=== PATIENT | female | born 1975 | race Caucasian/White ===

== ENCOUNTER → 2024-01-03 | Outpatient (CLI) | payer OTHER ==
[2024-01-03 11:00] LABS: Basophils # (A) 0.04 X 10*3/uL (0.00-0.10); Basophils % (A) 0.5 %; Eosinophils # (A) 0.26 X 10*3/uL (0.04-0.35); Eosinophils % (A) 3.5 %; HCT 38.2 % (37.2-46.3); HGB 11.3 g/dL (12.0-15.0); Lymphocytes % (A) 18.7 %; MCH 23.2 pg (27.0-32.0); MCHC 29.6 g/dL (32.0-37.0); MCV 78.3 FL (80.0-97.0); Monocytes # (A) 0.45 X 10*3/uL (0.20-1.00); NRBC Per 100 WBC 0 X 10*3/uL (0.00-0.01); Neutrophils # (A) 5.33 X 10*3/uL (1.80-7.70); Platelet Count 418 X 10*3/uL (140-440); RBC 4.88 X 10*6/uL (4.10-5.20); RDW 19.9 % (11.5-14.5)
[2024-01-03 11:22] LABS: ALT 21 U/L (8-44); AST 21 U/L (13-35); Albumin 4.6 g/dL (3.8-4.9); Albumin/Globulin Ratio 1.59 Ratio (1.60-3.17); Alkaline Phosphatase 129 U/L (41-126); BUN/Creat Ratio 21.86 Ratio (12.00-20.00); Blood Urea Nitrogen 15.3 mg/dL (9.0-27.0); Calcium 9.7 mg/dL (8.7-10.3); Carbon Dioxide 23.4 mmol/L (21.6-31.8); Chloride 105 mmol/L (96-109); Chol/HDL Ratio 2.87 Ratio; Globulin 2.9 g/dL (1.6-3.3); Glucose 107 mg/dL (70-110); LDL Cholesterol,Calculated 97.3 mg/dL (0.0-131.0); Potassium 4.8 mmol/L (3.5-5.5); Sodium 140 mmol/L (135-145); Total Bilirubin 0.3 mg/dL (0.3-1.2); Total Protein 7.5 g/dL (6.2-8.2); VLDL Calculation 18.02 mg/dL (5.00-40.00)
== END | disposition home or self-care (01) ==
LOC: LABWHC1 08:10
PROVIDERS: ATTEND Family Medicine
DX: R53.82 Chronic fatigue, unspecified (principal); D62 Acute posthemorrhagic anemia
CPT/HCPCS: 36415; 80053; 80061; 84443; 85025

== ENCOUNTER → 2024-01-11 | Outpatient (CLI) | payer OTHER ==
[2024-01-11 15:20] LABS: % Iron Saturation 3.53 (12.00-45.00); Ferritin 10.2 ng/mL (10.0-291.0)
== END | disposition home or self-care (01) ==
LOC: LABWHC1 09:40
PROVIDERS: ATTEND Internal Medicine
DX: R71.8 Other abnormality of red blood cells (principal); R74.8 Abnormal levels of other serum enzymes
CPT/HCPCS: 36415; 82306; 82607; 82728; 82746; 83540; 83550; 84466

== ENCOUNTER → 2024-06-08 | Outpatient (CLI) | payer OTHER ==
[2024-06-08 18:49] LABS: Basophils # (A) 0.06 X 10*3/uL (0.00-0.10); Basophils % (A) 0.6 %; Eosinophils # (A) 0.18 X 10*3/uL (0.04-0.35); Eosinophils % (A) 1.9 %; HCT 48.6 % (37.2-46.3); Lymphocytes # (A) 1.75 X 10*3/uL (0.90-5.00); Lymphocytes % (A) 18.8 %; MCH 24.3 pg (27.0-32.0); MCHC 30.9 g/dL (32.0-37.0); MCV 78.6 FL (80.0-97.0); Mean Platelet Volume 10.3 FL (9.5-12.2); Monocytes # (A) 0.49 X 10*3/uL (0.20-1.00); Monocytes % (A) 5.3 %; NRBC Per 100 WBC 0 X 10*3/uL (0.00-0.01); Neutrophils # (A) 6.79 X 10*3/uL (1.80-7.70); Neutrophils % (A) 72.9 %; Platelet Count 378 X 10*3/uL (140-440); RBC 6.18 X 10*6/uL (4.10-5.20); RDW 20.3 % (11.5-14.5); WBC 9.32 X 10*3/uL (4.50-10.00)
[2024-06-08 19:02] LABS: % Iron Saturation 8.68 (12.00-45.00); ALT 28 U/L (8-44); AST 27 U/L (13-35); Albumin 4.5 g/dL (3.8-4.9); Albumin/Globulin Ratio 1.41 Ratio (1.60-3.17); Alkaline Phosphatase 129 U/L (41-126); BUN/Creat Ratio 20.57 Ratio (12.00-20.00); Blood Urea Nitrogen 14.4 mg/dL (9.0-27.0); Calcium 9.6 mg/dL (8.7-10.3); Carbon Dioxide 24.1 mmol/L (21.6-31.8); Chloride 103 mmol/L (96-109); Chol/HDL Ratio 3.21 Ratio; Ferritin 32.3 ng/mL (10.0-291.0); Globulin 3.2 g/dL (1.6-3.3); Glucose 102 mg/dL (70-110); Iron 38 UG/DL (50-170); LDL Cholesterol,Calculated 102.4 mg/dL (0.0-131.0); Magnesium 2.3 mg/dL (1.5-2.4); Potassium 4.6 mmol/L (3.5-5.5); Sodium 139 mmol/L (135-145); Total Bilirubin 0.3 mg/dL (0.3-1.2); Total Iron Binding Capacity 438 UG/DL (228-460); Total Protein 7.7 g/dL (6.2-8.2)
== END | disposition home or self-care (01) ==
LOC: LABWHC1 11:48
PROVIDERS: ATTEND Internal Medicine
DX: D62 Acute posthemorrhagic anemia (principal); I10 Essential (primary) hypertension; E55.9 Vitamin D deficiency, unspecified
CPT/HCPCS: 36415; 80053; 80061; 82088; 82306; 82533; 82607; 82728; 82746; 83540; 83550; 83735; 84244; 84443; 85025

== ENCOUNTER → 2024-06-19 | Outpatient (CLI) | payer OTHER ==
--- NOTE | 2024-06-19 09:21 | US ---
EXAMINATION TYPE: US liver DATE OF EXAM: 06/19/2024 COMPARISON: NONE CLINICAL INDICATION: Female, 49 years old with history of R74.8 ABNORMAL LEVELS OF OTHER SERUM ENZYME S; Elevated alkaline phosphatase TECHNIQUE: Grayscale and color Doppler imaging of the right upper quadrant was performed. FINDINGS: EXAM MEASUREMENTS: Liver Length: 21.2 cm Gallbladder Wall: Surgically absent CBD: 0.3 cm Right Kidney: 11.1 x 4.0 x 4.0 cm MACHINE TOOL MECHANIC NOTES: *Limitations due to overlying bowel gas Pancreas: limited evaluation, appears slightly heterogenous Liver: enlarged, attenuating Gallbladder: Surgically absent Evidence for sonographic Aldana's sign: no CBD: appears wnl Right Kidney: no evidence of hydronephrosis IMPRESSION: 1. No evidence for acute process. 2. Hepatic steatosis. [facility], , 06/19/2024 9:19 AM
== END | disposition home or self-care (01) ==
LOC: RADUSWWP 08:36
PROVIDERS: ATTEND Internal Medicine
DX: K76.0 Fatty (change of) liver, not elsewhere classified (principal); R74.8 Abnormal levels of other serum enzymes
CPT/HCPCS: 76705

== ENCOUNTER → 2024-06-27 | Outpatient (CLI) | payer OTHER ==
--- NOTE | 2024-06-27 09:59 | US ---
EXAMINATION TYPE: US renal artery duplex complete DATE OF EXAM: 06/27/2024 COMPARISON: NONE CLINICAL INDICATION: Female, 49 years old with history of I10 HTN; HTN since surgery (hysterectomy) i n November 2023 TECHNIQUE: Grayscale, color Doppler and spectral Doppler imaging of the bilateral renal arteries and kidneys. FINDINGS: MEASUREMENTS: RENAL SIZE: Right Kidney: 10.1 x 3.7 x 3.4cm Left Kidney: 13.2 x 5.7 x 4.5cm Right Kidney: no evidence of hydronephrosis Left Kidney: no evidence of hydronephrosis Abd Aorta: unremarkable RESISTANCE INDEX Right: 0.65 Left: 0.70 RA/AO RATIO (< 3.5 ) Right: 2.2 Left: 1.5 RENAL ARTERY VELOCITY ( < 180 cm/s) Right: 230.2cm/s Left: 150.9cm/s Internal Salesperson Notes: Limitations due to overlying bowel content. Possible mildly elevated velocities r ight renal artery Appropriate color Doppler flow and spectral waveforms to the kidneys bilaterally. Grayscale imaging of the kidneys and show no evidence for hydronephrosis or mass. No renal calculi or cysts visualized. IMPRESSION: Suboptimal study without convincing sonographic evidence for hemodynamically significant focal renal stenosis bilaterally. Advise further investigation with CTA or MRA of the abdomen if clin ical suspicion persists. [facility], , 06/27/2024 9:56 AM
== END | disposition home or self-care (01) ==
LOC: RADUSWWP 08:33
PROVIDERS: ATTEND Internal Medicine
DX: I10 Essential (primary) hypertension (principal); Z90.710 Acquired absence of both cervix and uterus
CPT/HCPCS: 93975

== ENCOUNTER → 2024-08-13 | Outpatient (CLI) | payer OTHER ==
[2024-08-13 18:27] LABS: Basophils # (A) 0.05 X 10*3/uL (0.00-0.10); Basophils % (A) 0.5 %; Eosinophils # (A) 0.16 X 10*3/uL (0.04-0.35); Eosinophils % (A) 1.7 %; HCT 51.7 % (37.2-46.3); HGB 16.4 g/dL (12.0-15.0); Lymphocytes # (A) 1.56 X 10*3/uL (0.90-5.00); Lymphocytes % (A) 16.5 %; MCH 26.2 pg (27.0-32.0); MCHC 31.7 g/dL (32.0-37.0); MCV 82.7 FL (80.0-97.0); Mean Platelet Volume 10.1 FL (9.5-12.2); Monocytes # (A) 0.44 X 10*3/uL (0.20-1.00); Monocytes % (A) 4.7 %; NRBC Per 100 WBC 0 X 10*3/uL (0.00-0.01); Neutrophils % (A) 76.2 %; Platelet Count 349 X 10*3/uL (140-440); RBC 6.25 X 10*6/uL (4.10-5.20); RDW 16.3 % (11.5-14.5); WBC 9.45 X 10*3/uL (4.50-10.00)
[2024-08-13 19:00] LABS: ALT 45 U/L (8-44); AST 36 U/L (13-35); Albumin 4.5 g/dL (3.8-4.9); Albumin/Globulin Ratio 1.36 Ratio (1.60-3.17); Alkaline Phosphatase 146 U/L (41-126); BUN/Creat Ratio 20.25 Ratio (12.00-20.00); Blood Urea Nitrogen 16.2 mg/dL (9.0-27.0); Carbon Dioxide 21.5 mmol/L (21.6-31.8); Chloride 103 mmol/L (96-109); Globulin 3.3 g/dL (1.6-3.3); Glucose 97 mg/dL (70-110); Magnesium 2.1 mg/dL (1.5-2.4); Phosphorus 4.3 mg/dL (2.4-5.1); Potassium 4.3 mmol/L (3.5-5.5); Sodium 139 mmol/L (135-145); Total Bilirubin 0.4 mg/dL (0.3-1.2); Total Protein 7.8 g/dL (6.2-8.2)
[2024-08-13 19:09] LABS: Follicle Stimulating Hormone 22.5 mIU/mL; Luteinizing Hormone 16.4 mIU/mL
== END | disposition home or self-care (01) ==
LOC: LABWHC1 12:49
PROVIDERS: ATTEND Internal Medicine Nephrology
DX: N95.1 Menopausal and female climacteric states (principal); I10 Essential (primary) hypertension; R53.82 Chronic fatigue, unspecified
CPT/HCPCS: 36415; 80053; 82626; 83001; 83002; 83735; 84100; 84144; 84146; 84403; 85025

== ENCOUNTER → 2024-08-24 | Outpatient (CLI) | payer OTHER ==
[2024-08-24 19:32] LABS: Microalbumin Creatinine Ratio <14 mg/g Cr (0-30); Urine Creatinine 85.5 mg/dL (28.0-217.0)
[2024-08-24 19:43] LABS: Basophils # (A) 0.08 X 10*3/uL (0.00-0.10); Basophils % (A) 0.9 %; Eosinophils # (A) 0.21 X 10*3/uL (0.04-0.35); Eosinophils % (A) 2.3 %; HCT 50.2 % (37.2-46.3); HGB 15.7 g/dL (12.0-15.0); Lymphocytes # (A) 1.94 X 10*3/uL (0.90-5.00); Lymphocytes % (A) 21.4 %; MCH 26.1 pg (27.0-32.0); MCHC 31.3 g/dL (32.0-37.0); MCV 83.5 FL (80.0-97.0); Mean Platelet Volume 10.8 FL (9.5-12.2); Monocytes # (A) 0.44 X 10*3/uL (0.20-1.00); Monocytes % (A) 4.9 %; NRBC Per 100 WBC 0 X 10*3/uL (0.00-0.01); Neutrophils # (A) 6.36 X 10*3/uL (1.80-7.70); Neutrophils % (A) 70.1 %; Platelet Count 362 X 10*3/uL (140-440); RBC 6.01 X 10*6/uL (4.10-5.20); RDW 15.6 % (11.5-14.5); WBC 9.07 X 10*3/uL (4.50-10.00)
[2024-08-24 19:58] LABS: ALT 58 U/L (8-44); AST 40 U/L (13-35); Albumin 4.6 g/dL (3.8-4.9); Albumin/Globulin Ratio 1.35 Ratio (1.60-3.17); Alkaline Phosphatase 142 U/L (41-126); BUN/Creat Ratio 25.33 Ratio (12.00-20.00); Blood Urea Nitrogen 22.8 mg/dL (9.0-27.0); Carbon Dioxide 20.2 mmol/L (21.6-31.8); Chloride 103 mmol/L (96-109); Globulin 3.4 g/dL (1.6-3.3); Glucose 104 mg/dL (70-110); Magnesium 2.3 mg/dL (1.5-2.4); Phosphorus 4.7 mg/dL (2.4-5.1); Sodium 139 mmol/L (135-145); Total Bilirubin 0.3 mg/dL (0.3-1.2)
[2024-08-24 20:50] LABS: Appearance,Urine Clear (Clear); Bilirubin,Urine Negative (Negative); Blood,Urine Negative (Negative); Color,Urine Yellow (Yellow); Ketones,Urine Negative (Negative); Nitrite,Urine Negative (Negative); Specific Gravity,Urine 1.018 (1.001-1.030); Urobilinogen,Urine 0.2 E.U./DL
[2024-08-24 20:58] LABS: Bacteria,Urine Trace (None Seen)
== END | disposition home or self-care (01) ==
LOC: LABWHC1 13:42
PROVIDERS: ATTEND Internal Medicine
DX: I10 Essential (primary) hypertension (principal)
CPT/HCPCS: 36415; 80053; 81001; 82043; 82570; 83735; 84100; 85025

== ENCOUNTER → 2024-09-05 | Outpatient (CLI) | payer OTHER ==
[2024-09-06 01:51] LABS: Basophils # (A) 0.06 X 10*3/uL (0.00-0.10); Eosinophils # (A) 0.12 X 10*3/uL (0.04-0.35); HGB 14.8 g/dL (12.0-15.0); Lymphocytes # (A) 1.34 X 10*3/uL (0.90-5.00); Lymphocytes % (A) 21.8 %; MCH 26.3 pg (27.0-32.0); MCHC 31.5 g/dL (32.0-37.0); MCV 83.6 FL (80.0-97.0); Mean Platelet Volume 10.3 FL (9.5-12.2); Monocytes % (A) 11.4 %; NRBC Per 100 WBC 0 X 10*3/uL (0.00-0.01); Neutrophils % (A) 63.3 %; Platelet Count 289 X 10*3/uL (140-440); RBC 5.62 X 10*6/uL (4.10-5.20); WBC 6.15 X 10*3/uL (4.50-10.00)
[2024-09-06 02:24] LABS: Hepatitis B Surface Antigen Nonreactive (Nonreactive); Hepatitis C IgG Antibody Nonreactive (Nonreactive)
[2024-09-06 02:31] LABS: % Iron Saturation 13.98 (12.00-45.00); ALT 54 U/L (8-44); AST 41 U/L (13-35); Albumin 4.3 g/dL (3.8-4.9); Albumin/Globulin Ratio 1.48 Ratio (1.60-3.17); Alkaline Phosphatase 130 U/L (41-126); Blood Urea Nitrogen 17.2 mg/dL (9.0-27.0); Calcium 9.2 mg/dL (8.7-10.3); Carbon Dioxide 22.5 mmol/L (21.6-31.8); Chloride 101 mmol/L (96-109); Globulin 2.9 g/dL (1.6-3.3); Glucose 95 mg/dL (70-110); Iron 53 UG/DL (50-170); Potassium 4.5 mmol/L (3.5-5.5); Sodium 137 mmol/L (135-145); Total Bilirubin 0.3 mg/dL (0.3-1.2); Total Iron Binding Capacity 379 UG/DL (228-460); Total Protein 7.2 g/dL (6.2-8.2)
[2024-09-06 02:43] LABS: Ceruloplasmin 33.6 mg/dL (20.0-60.0)
[2024-09-06 02:46] LABS: Alpha Fetoprotein, Tumor Mkr <3.00 ng/mL (0.00-7.90)
[2024-09-06 03:01] LABS: Protein, Total 7.3 g/dL (6.2-8.2)
== END | disposition home or self-care (01) ==
LOC: LABWHC1 16:33
PROVIDERS: ATTEND Internal Medicine Gastroenterology
DX: R74.01 Elevation of levels of liver transaminase levels (principal); R74.8 Abnormal levels of other serum enzymes
CPT/HCPCS: 36415; 80053; 81596; 82103; 82105; 82390; 82728; 83516; 83540; 83550; 84165; 85025; 86038; 86803; 87340